=== PATIENT | male | born 1980 | race Caucasian/White ===

== ENCOUNTER 2022-05-18 10:21 | Emergency (ER) | payer BC, SELFPAY ==
[2022-05-18 10:40] VITALS: BP 130/91; PULSE 100; RESP 18; TEMP 36.3; O2SAT 98; BMI 27.2
--- NOTE | 2022-05-18 11:22 | ED.GENADULT ---
HPI - General Adult General Chief complaint: Extremity Pain/Injury, Lower Stated complaint: Left foot pain Time Seen by Provider: 05/18/22 10:48 History of Present Illness HPI narrative: This 41-year-old male comes in with pain and redness with some swelling in his left great toe. He thinks that he might be having a flare-up of gout. He does not have any personal history of gout but states that his grandfather had recurrent gout symptoms and was on a preventative medicine. The patient does not report any injury event and does not have any fevers. Related Data Previous Rx's Medication Instructions Recorded ketorolac 10 mg tablet 10 mg PO Q8H 5 days #15 tabs 05/18/22 methylprednisolone 4 mg tablets in See Rx Instructions PO .COMPLEX 05/18/22 a dose pack (Medrol (Ken)) #21 ea Allergies Allergy/AdvReac Type Severity Reaction Status Date / Time cephalexin [From Keflex] Allergy Verified 05/18/22 10:40 bees Allergy Uncoded 05/18/22 10:40 Review of Systems Status of ROS: Reports: 10 or more systems reviewed and unremarkable except as noted in History and below Narrative: Constitutional: No fevers, no weight gain or loss. Eyes: No discharge. No vision changes. HENT: No congestion, no sore throat, no ear pain. Cardiovascular: No chest pain, no palpitations. Respiratory: No shortness of breath, no wheezes, no cough. Gastrointestinal: No abdominal pain, no vomiting, no diarrhea. Genitourinary: No dysuria, no hematuria. Musculoskeletal: Left great toe at the MP joint has pain and swelling with decreased range of motion. Skin: No rashes, no pruritis. Neurological: No dizziness, weakness, sensory change, speech change. Endo/Heme/Allergies: No bruising or bleeding. No polydipsia. Pysch: no suicidality, no anxiety, no insomnia. All other systems reviewed and are negative. PFSH PFSH Social History Smoking Status: Never smoker Do you use any of these nicotine containing products: None Second hand tobacco smoke exposure: No How often do you have a drink containing alcohol: never How often do you have six or more drinks on one occasion: Never AUDIT-C Alcohol total score: 0 Non-prescribed substance use: denies use service: No Exam Narrative: Exam Narrative: Constitutional: Well-developed, well-nourished, no acute distress. HEENT: Normocephalic, atraumatic. Neck: Normal range of motion. Nontender. Supple. Heart: Intact distal pulses. Lungs: No chest discomfort. No wheezes, rhonchi, or rales. Abdomen: Nontender. Back: Normal range of motion. Extremities: Left great toe has erythema with mild swelling and pain with any kind of movement or touch to the skin. Skin: Intact. No rash. Warm. No erythema or pallor. Neurologic: No altered sensation. No weakness. Alert and oriented. Psychiatric: No suicidality. No anxiety or depression. No insomnia. Nursing notes and vitals signs are reviewed. Const: Vital Signs, click to edit/add: Vital Signs - 24 hr 05/18/22 10:40 Temperature 97.3 F L Pulse Rate [Pulse Oximeter] 100 Respiratory Rate 18 Blood Pressure [Ri ght Upper Arm] 130/91 H Pulse Oximetry 98 Oxygen Delivery Me thod Room Air Course Vital Signs Vital signs: Initial Vital Signs Temperature 97.3 F L 05/18/22 10:40 Temperature Source Temporal Artery Scan 05/18/22 10:40 Pulse Rate 100 05/18/22 10:40 Pulse Rhythm 05/18/22 10:40 Respiratory Rate 18 05/18/22 10:40 Blood Pressure 130/91 H 05/18/22 10:40 Blood Pressure Mean 104 05/18/22 10:40 Blood Pressure Position Sitting 05/18/22 10:40 Pulse Oximetry 98 05/18/22 10:40 Oxygen Delivery Method 05/18/22 10:40 Vital Signs Temperature 97.3 F L 05/18/22 10:40 Pulse Rate 100 05/18/22 10:40 Respiratory Rate 18 05/18/22 10:40 Blood Pressure 130/91 H 05/18/22 10:40 Pulse Oximetry 98 05/18/22 10:40 Oxygen Delivery Method 05/18/22 10:40 Temperature 97.3 F L 05/18/22 10:40 Pulse Rate 100 05/18/22 10:40 Respiratory Rate 18 05/18/22 10:40 Blood Pressure 130/91 H 05/18/22 10:40 Pulse Oximetry 98 05/18/22 10:40 Oxygen Delivery Method 05/18/22 10:40 Medical Decision Making MDM Narrative Medical decision making narrative: This patient has symptoms that are suspicious for gout. I did discuss options for establishing this diagnosis more definitively included joint aspiration and testing a uric acid level. He declined these tests. He does not appear to have a septic joint and states that there was no injury event. He did received prescriptions for Medrol Dosepak and Toradol. I did describe some matters related to diet that can prevent or exacerbate this condition. I advised him to research on the web for such instructions. This diagnosis today is not confirmed by lab results and the patient is aware of this and is encouraged to return if worsening symptoms happen. Discharge Plan Discharge Clinical Impression: Gout attack Patient Disposition: Home, Self-Care Condition: Unchanged Additional Instructions: Take medications as prescribed. Increase activity as tolerated. Return if not improving or worsening symptoms happen. Prescriptions: New ketorolac 10 mg tablet 10 mg PO Q8H 5 Days Qty: 15 0RF methylprednisolone [Medrol (Ken)] 4 mg tablets,dose pack See Rx Instructions .ROUTE .COMPLEX Qty: 21 0RF Rx Instructions: orally per package directions Stand Alone Forms: [employer] Info Instructions
== END 2022-05-18 11:39 | disposition home or self-care (01) ==
LOC: ED 11:36
PROVIDERS: Emergency Provider Emergency Medicine Emergency Medical Services
DX: M10.9 Gout, unspecified (principal)
CPT/HCPCS: 99283; 99284